=== PATIENT | female | born 1980 | race Two or more races ===

== ENCOUNTER 2017-04-07 17:37 | Emergency (ER) | payer SELFPAY ==
--- NOTE | ~2017-04-07 | ER ---
[facility] [place] AGE: 36 Y [address] ROOM: [place] [address] LOCATION: ED ADMIT DATE: 04/07/2017 ER/Outpatient Report DISCHARGE DATE: 04/07/2017 FAMILY PHYSICIAN: Physician, Unknown ATTENDING PHYSICIAN: Leander Rahman Time of Arrival: 1740 hours. Time of Exam: 1740 hours. CHIEF COMPLAINT: Abdominal pain. HISTORY OF PRESENT ILLNESS: The patient states she awoke this a.m. with pain in the right upper quadrant right flank area. She states her abdomen feels hot, pain comes and goes. She has been nauseated, has not vomited. Had diarrhea stools x3 today. Denies being feverish or chills. Has not noticed any blood in the diarrhea. Denies having any pain or discomfort with urination. She said she had similar pain 3 days ago, but it went away on its own; however, today the pain is not going away on its own. She reports that she does have a history of liver disease, she states for the last 10 years she has had problems with her liver enzymes being elevated due to chronic anemia they state, she states they told her it is just inflammation and have not given her definitive diagnosis. ALLERGIES: MORPHINE. MEDICATIONS: None. PAST MEDICAL HISTORY: Chronic anemia, liver enzyme elevation. PAST SURGERIES: Tubal ligation, cholecystectomy. SOCIAL HISTORY: She denies use of tobacco, drugs, or alcohol. She presents to the ER accompanied by her . Ashlyn was used to help with communication barrier. She states she doctors for liver disease with a doctor in [place]. PHYSICAL EXAMINATION: VITAL SIGNS: She reports she is 5 feet 1 inch. She weighed 61.9 kg. Blood pressure is 109/65, pulse is 75, respirations are 22, temperature of 99.7, and O2 saturation is 100% on room air. PATIENT'S NAME: JAMIE DELACRUZ [facility] AGE: 36 Y [address] ROOM: [place] [address] LOCATION: ED ADMIT DATE: 04/07/2017 ER/Outpatient Report DISCHARGE DATE: 04/07/2017 FAMILY PHYSICIAN: Physician, Unknown ATTENDING PHYSICIAN: Leander Rahman GENERAL: She is awake, alert, and oriented x4. SKIN: [place], warm, and dry. CHEST: Respirations are even and nonlabored. Lung sounds are clear throughout. HEART: Regular rate and rhythm. ABDOMEN: Soft and nondistended. Bowel sounds are present. She is tender in the right upper quadrant area. EMERGENCY ROOM COURSE: Saline lock was initiated. She was given Toradol 30 mg IV. Lab work was drawn. CBC shows a white count of 8.7, hemoglobin is 10.4 with hematocrit of 31.7. Chem Panel: Alkaline phosphatase is 200, AST is 166 with an ALT of 196. Amylase is 75 with a lipase of 142. Lactate was 1.6. Procalcitonin was normal. UA showed few bacteria. CT of the abdomen was completed. Radiologist reports there is no inflammation around the appendix area, but the appendix looks slightly thickened. The patient was given fentanyl and Zofran. She reports her pain is gone after that. She was able to ambulate to the bathroom without discomfort and without assistance. Discussed results of lab and CT with the patient. IMPRESSION: Abdominal pain. PLAN: Home, rest, fluids. If symptoms persist or worsen, she was given names of surgeons at [facility] to follow up with, to have the appendix area re- evaluated in the next 1-2 days. She is welcome to return to the ER as needed. She verbalized understanding. KAVEH BRASHER APRN FOR MD BILL CASTAÑEDA/lety /[id number] d: 04/09/171953 t: 04/29/171933, OUTPATIENT REPORT
[2017-04-07 17:57] LABS: BILIRUBIN URINE NEGATIVE (NEGATIVE); BLOOD URINE NEGATIVE /UL (NEGATIVE); GLUCOSE URINE NEGATIVE (NEGATIVE); KETONE URINE NEGATIVE (NEGATIVE); LEUKOCYTES URINE 25 /UL (NEGATIVE); NITRITE URINE NEGATIVE (NEGATIVE); PROTEIN URINE 15 mg/dL (NEGATIVE); SPEC GRAVITY URINE 1.015 (1.003-1.035); UROBILINOGEN URINE 1 mg/dL (NORMAL)
[2017-04-07 18:00] LABS: COLOR URINE YELLOW (YELLOW); TURBIDITY URINE CLEAR (CLEAR)
[2017-04-07 18:06] LABS: BACTERIA URINE FEW (NEGATIVE); RBC URINE NEGATIVE #/HPF (NEGATIVE)
[2017-04-07 18:07] LABS: BASOPHIL % 0.2 %; EOSINOPHIL # 0.1 K/uL (0.0-0.5); EOSINOPHIL % 1.4 %; HEMATOCRIT 31.7 % (33.0-46.0); HEMOGLOBIN 10.4 g/dL (11.0-15.0); IMMATURE GRANULOCYTE % 0.3 %; LYMPHOCYTE # 0.9 K/uL (0.8-4.0); LYMPHOCYTE % 10.2 %; MCH 27.4 pg (27.0-34.0); MCHC 32.8 gm/dL (32.0-36.5); MCV 83.4 fl (83.0-98.0); MONOCYTE # 0.2 K/uL (0.0-1.0); MONOCYTE % 2.8 %; MPV 8.9 fl (9.4-12.4); NEUTROPHIL # (ANC) 7.4 K/uL (1.8-7.8); NEUTROPHIL % 85.1 %; NRBC % 0 /100WBC (0-0.00); PLATELET COUNT 345 K/uL (150-450); RDW-CV 13.6 % (11.9-14.6); WBC 8.7 K/uL (4.0-11.0)
[2017-04-07 18:07] LABS: MUCUS URINE 3+ (NEGATIVE)
[2017-04-07 18:24] LABS: ALBUMIN 3.5 gm/dL (3.5-5.0); ALK PHOS 200 IU/L (33-138); ALT 196 IU/L (12-78); ANION GAP 13.5 (10.0-19.0); AST 166 IU/L (10-40); BLOOD UREA NITROGEN 11 mg/dL (6-24); CHLORIDE 104 mMol/L (96-110); CO2 22 mMol/L (22-32); CREATININE 0.7 mg/dL (0.5-1.1); ESTIMATED GFR (MDRD EQUATION) > 60; POTASSIUM 3.5 mMol/L (3.7-5.1); SODIUM 136 mMol/L (135-145); TOTAL BILIRUBIN 0.4 mg/dL (0.0-1.5); TOTAL PROTEIN 7.4 g/dL (6.0-8.4)
== END 2017-04-07 20:55 | disposition disaster alternative care site (69) ==
LOC: GMED 17:37
PROVIDERS: Emergency Medicine; Nurse Practitioner Family
DX: R10.11 Right upper quadrant pain (principal); Z98.51 Tubal ligation status; Z90.49 Acquired absence of other specified parts of digestive tract; Z88.5 Allergy status to narcotic agent
CPT/HCPCS: J1885; J2405; J3010; Q9967

== ENCOUNTER 2017-06-21 16:13 | Emergency (ER) | payer SELFPAY ==
--- NOTE | ~2017-06-21 | ER ---
PATIENT'S NAME: JAMIE DELACRUZ [facility] AGE: 37 Y [address] ROOM: [place] [address] LOCATION: [facility] ADMIT DATE: 06/21/2017 ER/Outpatient Report DISCHARGE DATE: 06/21/2017 FAMILY PHYSICIAN: PHYSICIAN, LORENZO ATTENDING PHYSICIAN: Leander Rahman HISTORY OF PRESENT ILLNESS: This patient is a 37-year-old female, who presented to the emergency room with abdominal pain, some lightheadedness that has gradually worsened over the past 3 days. The patient initially saw Dr. Rahman. See Dr. Rahman's dictation in regard to chief complaint, history of present illness, past medical history, physical exam, laboratory study results. Dr. Rahman did transfer the patient's care over to me at shift change. Dr. Rahman had ordered a CT scan of the abdomen and pelvis along with an ultrasound of the upper abdomen and lower abdomen. He asked me to follow up the results of the CT scans, final diagnosis, and treatment plan. It should be noted that the patient's laboratory studies were all normal except for an elevation of her liver enzymes including alkaline phosphatase 162, AST 75, ALT 74, GGTP of 244. Total bilirubin was normal. CT scan of the abdomen and pelvis showed no intraabdominal free air, free fluid, or solid organ changes. It was read out as normal per radiologist. See dictated transcribed Radiology report. Ultrasound of the upper abdomen was negative. Ultrasound of the lower abdomen showed a 2 cm ovarian cyst. No free fluid in the pelvis. Ultrasound is read by Radiology, see dictated transcribed reports. IMPRESSION: Abdominal pain, etiology uncertain at this time. The patient had a normal CT scan of the abdomen and pelvis. Ultrasound of the upper abdomen was negative. Ultrasound of the lower abdomen showed a left ovarian cyst measures about 2 to 3 cm. There was no excessive free fluid. The patient does have elevated liver enzymes on laboratory studies. No evidence of acute appendicitis, free air, free fluid. PLAN: The patient was given IV fluids, IV pain medicines, IV antiemetics in the emergency department. Dismissed home. Observation. Activity as tolerated. Fluids and diet as tolerated. We will dismiss the patient home on [place] 5/325 as needed for pain 1 every 4 to 6 hours, #20. The patient is to follow up with personal physician the first of week or verbally in 2 to 3 days for repeat liver enzymes. If pain persists, the patient may need to see a food adviser for consultative exam. Discussion ensued with the patient in regard to my findings and recommendations. PATIENT'S NAME: JAMIE DELACRUZ [facility] AGE: 37 Y [address] ROOM: [place] [address] LOCATION: ED ADMIT DATE: 06/21/2017 ER/Outpatient Report DISCHARGE DATE: 06/21/2017 FAMILY PHYSICIAN: PHYSICIAN, LORENZO ATTENDING PHYSICIAN: Leander Rahman MD YOGI PIERRE/lety /[id number] d: 06/21/172021 t: 06/22/17 182, OUTPATIENT REPORT
--- NOTE | ~2017-06-21 | ER ---
[facility] 37 [facility] [address] ROOM: [place] [address] LOCATION: ED ADMIT DATE: 06/21/2017 ER/Outpatient Report DISCHARGE DATE: 06/21/2017 FAMILY PHYSICIAN: PHYSICIAN, NO ATTENDING PHYSICIAN: Leander Rahman CHIEF COMPLAINT: Abdominal pain. HISTORY OF PRESENT ILLNESS: For the last 3 days, the patient has had right-sided abdominal pain. It is low and high on the right side. She has had some nausea and vomiting associated with this. She denies any fevers or chills. She endorses normal bowel movements. She says in March, she had a CT scan, which indicated possibly inflamed appendix but nothing was done about it. She said she had been feeling better since then until the last few days. No clear etiology to onset. It is unclear if foods affect her symptoms. She denies any fevers. She has not seen anyone for this issue. PAST MEDICAL HISTORY: Documented on the record and reviewed by me. SOCIAL HISTORY: Documented on the record and reviewed by me. MEDICATIONS: Documented on the record and reviewed by me. ALLERGIES: DOCUMENTED ON THE RECORD AND REVIEWED BY ME. REVIEW OF SYSTEMS: All systems reviewed and negative except as noted in the HPI. PHYSICAL EXAMINATION: VITAL SIGNS: Blood pressure 115/76, pulse is 90, respiratory rate is 20, temperature 97.3, SpO2 is 100% on room air. Pain is rated as 8/10. GENERAL: Age-appropriate female, heritage, recumbent on the exam table in no apparent distress. Mild pain. NEUROLOGIC: Awake and alert. GCS is 15. No focal deficits. No asymmetry. No gait abnormalities. HEENT: Normocephalic, atraumatic. Eyes are PERRL. Oropharynx is clear. NECK: Supple. Trachea is midline. CHEST/HEART: Regular rate and rhythm with no murmurs. PATIENT'S NAME: JAMIE DELACRUZ [facility] [place] AGE: 37 Y [address] ROOM: [place] [address] LOCATION: ED ADMIT DATE: 06/21/2017 ER/Outpatient Report DISCHARGE DATE: 06/21/2017 FAMILY PHYSICIAN: PHYSICIAN, NO ATTENDING PHYSICIAN: Leander Rahman LUNGS: Clear to auscultation bilateral. No rhonchi, wheezes, or rales. BACK: Normal to inspection and palpation. No CVA tenderness. No spinal tenderness. ABDOMEN: Soft, nontender on the left side, tender on the right side. Positive Sutton sign. Pain at McBurney's point with intermittent rebound. No guarding. Rovsing sign is negative. Obturator sign is equivocal. Psoas sign is equivocal. No obvious masses. No hernias. EXTREMITIES: Warm and well perfused. No deformities. No edema. SKIN: Clean, dry, and intact. X-RAYS: Pending. LABORATORY DATA: GGT is 244, lactate is 1.5. Urinalysis with no abnormalities. CBC with no elevation of white count. White count is 6.9, hemoglobin 11.9, and platelets of 380. INR is less than 1. CMS with no appreciable electrolyte abnormalities. Alkaline phosphatase of 162, AST is 75, ALT of 74, amylase and lipase of 90 and 209 respectively. CRP is 0.45. HCG is undetectable. Serum mono is negative. IMPRESSION: Abdominal pain with mild transaminitis. EMERGENCY DEPARTMENT COURSE: The patient was seen and evaluated as above. CT scan and hepatobiliary ultrasound is pending. The patient does have a history of cholecystectomy. Unclear etiology for why her LFTs would be elevated still. She was given fluids, Zofran, and fentanyl with improvement in her pain. Results of scans are pending at the time of hand off to Dr. Beaver at 1800 hours. Plan to follow up the results of those scans and disposition of the patient appropriately. Please see his dictation for completion of the encounter. MD BON CASTAÑEDA/lety /[id number] d: 06/22/1708 t: 07/08/1709, OUTPATIENT REPORT
[2017-06-21 16:48] LABS: BASOPHIL # 0.1 K/uL (0.0-0.2); BASOPHIL % 0.9 %; EOSINOPHIL # 0.2 K/uL (0.0-0.5); EOSINOPHIL % 2.6 %; HEMATOCRIT 35.3 % (33.0-46.0); HEMOGLOBIN 11.9 g/dL (11.0-15.0); IMMATURE GRANULOCYTE % 0.1 %; LYMPHOCYTE # 2.5 K/uL (0.8-4.0); LYMPHOCYTE % 35.7 %; MCH 28.1 pg (27.0-34.0); MCHC 33.7 gm/dL (32.0-36.5); MCV 83.5 fl (83.0-98.0); MONOCYTE # 0.4 K/uL (0.0-1.0); MONOCYTE % 6.1 %; MPV 9.6 fl (9.4-12.4); NEUTROPHIL # (ANC) 3.8 K/uL (1.8-7.8); NEUTROPHIL % 54.6 %; NRBC % 0 /100WBC (0-0.00); PLATELET COUNT 380 K/uL (150-450); RBC 4.23 M/uL (3.50-5.50); WBC 6.9 K/uL (4.0-11.0)
[2017-06-21 16:49] LABS: RDW-CV 16.1 % (11.9-14.6)
[2017-06-21 16:57] LABS: INR - (THERAPEUTIC) 0.92 (0.92-1.07); PROTIME 9.7 SECONDS (9.8-11.4); PTT 24 SECONDS (25-32)
[2017-06-21 17:08] LABS: ALK PHOS 162 IU/L (33-138); ALT 74 IU/L (12-78); ANION GAP 12.5 (10.0-19.0); AST 75 IU/L (10-40); BLOOD UREA NITROGEN 10 mg/dL (6-24); CALCIUM 8.9 mg/dL (8.5-10.5); CHLORIDE 106 mMol/L (96-110); CO2 24 mMol/L (22-32); CREATININE 0.8 mg/dL (0.5-1.1); POTASSIUM 3.5 mMol/L (3.7-5.1); SODIUM 139 mMol/L (135-145); TOTAL PROTEIN 8.3 g/dL (6.0-8.4)
[2017-06-21 17:09] LABS: TOTAL BILIRUBIN 0.3 mg/dL (0.0-1.5)
[2017-06-21 17:33] LABS: BILIRUBIN URINE NEGATIVE (NEGATIVE); BLOOD URINE NEGATIVE /UL (NEGATIVE); COLOR URINE YELLOW (YELLOW); GLUCOSE URINE NEGATIVE (NEGATIVE); KETONE URINE NEGATIVE (NEGATIVE); LEUKOCYTES URINE NEGATIVE /UL (NEGATIVE); NITRITE URINE NEGATIVE (NEGATIVE); PROTEIN URINE NEGATIVE (NEGATIVE); TURBIDITY URINE CLEAR (CLEAR); UROBILINOGEN URINE NORMAL (NORMAL)
== END 2017-06-21 19:18 | disposition disaster alternative care site (69) ==
LOC: GMED 16:13
PROVIDERS: Emergency Medicine
DX: R10.9 Unspecified abdominal pain (principal); R74.0 Nonspecific elevation of levels of transaminase and lactic acid dehydrogenase [LDH]; N83.202 Unspecified ovarian cyst, left side; D64.9 Anemia, unspecified; R74.8 Abnormal levels of other serum enzymes; Z98.51 Tubal ligation status; Z88.5 Allergy status to narcotic agent; Z90.49 Acquired absence of other specified parts of digestive tract; Z98.890 Other specified postprocedural states
CPT/HCPCS: J2405; J3010; J7030; Q9967